=== PATIENT | female | born 1960 | race Caucasian/White ===

== ENCOUNTER 2021-07-29 17:31 | Emergency (ER) | payer OTHER ==
[2021-07-29 18:30] LABS: ANION GAP 12.6 mEq/L (7-13); CHLORIDE,CL 105 mmol/L (98-107); SODIUM,NA 143 mmol/L (136-145)
[2021-07-29] MEDS ORDERED: Iopamidol 612 MG/ML 100 ML Bottle IVPUSH ONE (18:39)
== END 2021-07-29 20:17 | disposition home or self-care (01) ==
LOC: DL.ED 17:31
DX: S50.01XA Contusion of right elbow, initial encounter (principal); S20.211A Contusion of right front wall of thorax, initial encounter; R91.1 Solitary pulmonary nodule; V49.40XA Driver injured in collision with unspecified motor vehicles in traffic accident, initial encounter; Y92.009 Unspecified place in unspecified non-institutional (private) residence as the place of occurrence of the external cause
CPT/HCPCS: 36415; 71260; 72125; 73080; 74177; 80053; 81003; 85025; 99283; 99284; Q9967

== ENCOUNTER 2024-04-13 06:45 | Day surgery (SDC) | payer BC, OTHER ==
[~2024-04-13 06:45] MED LIST: Midazolam 1 MG/ML 2 ML SDV IV ONE; Midazolam 1 MG/ML 2 ML SDV ONE; fentaNYL 100 MCG/2 ML SDV IV ONE; fentaNYL 100 MCG/2 ML SDV ONE
[2024-04-13] MEDS: Dextrose 5%-0.45% NaCl 1,000 ML IV SCH (07:14)
[2024-04-13] MEDS: fentaNYL 100 MCG/2 ML SDV IV ONE ×2 (07:47→07:48)
[2024-04-13] MEDS: Midazolam 1 MG/ML 2 ML SDV IV ONE ×3 (07:48→08:11)
== END 2024-04-13 09:40 | disposition home or self-care (01) ==
LOC: DL.ENDO 06:45
PROVIDERS: ATTEND Internal Medicine Gastroenterology
DX: Z12.11 Encounter for screening for malignant neoplasm of colon (principal)
CPT/HCPCS: 45378; J2250; J3010; J7799